=== PATIENT | female | born 1995 | race Two or more races ===

== ENCOUNTER 2020-08-06 00:16 | Emergency (ER) | payer OTHER ==
[~2020-08-06] VITALS: Ht 170.2 cm; Wt 56.7 kg
[2020-08-06] MEDS ORDERED: ULTRAM50 MG PO (14:34)
[2020-08-06] MEDS ORDERED: KETO10TA2 PO (14:34)
== END 2020-08-06 15:01 | disposition home or self-care (01) ==
LOC: EMR PED 00:16 → ER 00:16
DX: K29.70 Gastritis, unspecified, without bleeding (principal); N83.292 Other ovarian cyst, left side

== ENCOUNTER 2023-07-20 17:51 | Emergency (ER) | payer OTHER ==
[~2023-07-20] VITALS: Ht 170.2 cm; Wt 65.8 kg
[~2023-07-20 17:51] MED LIST: KETO10TA2 PO; ULTRAM50 MG PO
[2023-07-20] MEDS ORDERED: ZOLOFT20 MG/1 ML PO (18:02)
[2023-07-20 19:30] LABS: HEMATOCRIT 25.6 % (36.0-45.00); MEAN CORPUSCULAR HGB CONC 31.1 g/dl (32.0-36.0); PLATELET COUNT 250 K/uL (150-450); RED BLOOD COUNT 3.65 M/uL (4.00-6.00); RED CELL DISTRIBUTION WIDTH 17.8 % (11.5-14.5)
[2023-07-20 19:31] LABS: MEAN CORPUSCULAR HEMOGLOBIN 21.9 pg (27.00-32.0)
[2023-07-20 19:45] LABS: CALCIUM 8.6 mg/dL (8.5-10.1); CREATININE SERUM 0.6 mg/dL (0.55-1.02); GFR 119.92; POTASSIUM 4.11 mEq/L (3.5-5.1)
[2023-07-20 19:46] LABS: INR 1.1; PARTIAL THROMBOPLASTIN TIME 29.1 SECONDS (22.0-34.0); PROTHROMBIN TIME 11.5 SECONDS (9.0-11.5)
[2023-07-20 21:55] LABS: PH,URINE 7.5 (5.0-8.0); URINE APPEARANCE Clear; URINE BILIRRUBIN Negative (NEGATIVE); URINE BLOOD Negative; URINE COLOR Yellow; URINE GLUCOSE Negative (NEGATIVE); URINE LEUKOCYTE Moderate; URINE NITRATE Negative; URINE PROTEIN Negative (NEGATIVE); URINE UROBILINOGEN 0.2 E.U./dl
[2023-07-20 21:59] LABS: URINE BACTERIA 530.3 uL (0.0-1933); URINE EPITHELIAL CELLS 21.1 uL (0.0-38.8); URINE RBC 10.7 uL (0.0-20.8); URINE WBC 40.1 uL (0.0-23.2)
[2023-07-20] MEDS ORDERED: IRON325 MG PO (22:30)
[2023-07-20] MEDS ORDERED: DOLOGEN CAPLET1 EACH PO (22:30)
== END 2023-07-20 22:42 | disposition home or self-care (01) ==
LOC: ER 17:52
PROVIDERS: General Practice
DX: D64.9 Anemia, unspecified (principal); R10.31 Right lower quadrant pain; N83.209 Unspecified ovarian cyst, unspecified side
CPT/HCPCS: 36415; 74177; 96365; 96366; 99284; J1885; J3490; J7030; Q9965

== ENCOUNTER 2024-05-24 04:24 | Emergency (ER) | payer OTHER ==
[~2024-05-24] VITALS: Ht 170.2 cm; Wt 73.0 kg
[~2024-05-24 04:24] MED LIST changes: +DOLOGEN CAPLET1 EACH PO; +IRON325 MG PO; +ZOLOFT20 MG/1 ML PO
[2024-05-24] MEDS ORDERED: PROMETHAZINE HCL 50 MG/ML AMPUL IM STA (05:14)
[2024-05-24] MEDS ORDERED: FAMOTIDINE/PF 20 MG/2 ML VIAL IV PUSH STA (05:14)
[2024-05-24] MEDS ORDERED: 0.9 % SODIUM CHLORIDE 1,000 ML IV ONE (05:15)
[2024-05-24 06:19] LABS: HEMATOCRIT 43.6 % (36.0-45.00); HEMOGLOBIN 14.7 g/dL (12.0-15.00); MEAN CORPUSCULAR HEMOGLOBIN 29.4 pg (27.00-32.0); MEAN CORPUSCULAR HGB CONC 33.7 g/dl (32.0-36.0); PLATELET COUNT 224 K/uL (150-450); RED BLOOD COUNT 5.01 M/uL (4.00-6.00); RED CELL DISTRIBUTION WIDTH 16.9 % (11.5-14.5)
[2024-05-24 06:33] LABS: ALBUMIN 4.2 gm/dL (3.4-5.0); BILIRUBIN TOTAL 1.34 mg/dL (0.3-1.2); CALCIUM 9.2 mg/dL (8.5-10.1); CREATININE SERUM 0.86 mg/dL (0.55-1.02); GFR 78.57; GLOBULINA 4.3 G/DL (2.4-3.5); TOTAL PROTEIN 8.5 gm/dL (6.4-8.2)
[2024-05-24 06:34] LABS: POTASSIUM 4.28 mEq/L (3.5-5.1)
[2024-05-24 08:11] LABS: PH,URINE 7.5 (5.0-8.0); URINE APPEARANCE Cloudy; URINE BILIRRUBIN Negative (NEGATIVE); URINE BLOOD Negative; URINE COLOR Yellow; URINE GLUCOSE Negative (NEGATIVE); URINE KETONE Trace (NEGATIVE); URINE LEUKOCYTE Small; URINE NITRATE Negative; URINE PROTEIN Negative (NEGATIVE)
[2024-05-24 08:13] LABS: URINE BACTERIA 473.7 uL (0.0-1933); URINE EPITHELIAL CELLS 10.9 uL (0.0-38.8); URINE RBC 18.1 uL (0.0-20.8); URINE WBC 46.8 uL (0.0-23.2)
[2024-05-24 08:31] LABS: URINE CAST 0.15 uL (0.0-1.40)
== END 2024-05-24 11:53 | disposition home or self-care (01) ==
LOC: ER 04:26
PROVIDERS: General Practice
DX: R11.10 Vomiting, unspecified (principal); R50.9 Fever, unspecified